=== PATIENT | female | born 1940 | race Caucasian/White ===

== ENCOUNTER 2017-04-28 11:59 | Emergency (ER) | payer OTHER ==
[2017-04-28 12:00] VITALS: BP 218/84; PULSE 94; RESP 16; TEMP 101.1; O2SAT 99
[2017-04-28] MEDS ORDERED: SODIUM CHLOR 0.9% 1000 ML INJ 1,000 ML IV SCH (12:21)
[2017-04-28 12:22] VITALS: O2SAT 97
--- NOTE | 2017-04-28 12:26 | PD ---
HPI Chief Complaint: GI Complaint Time Seen by Provider: 12:08 Travel History International Travel<30 days: Yes Contact w/Intl Traveler<30days: Yes Name of Country Traveled to: [place]; [facility]; [place] Traveled to known affect area: Yes History of Present Illness HPI 77 YO F with PMH of HTN, HLD, anxiety, presents to the ED for evaluation of less than 24-hour history of nausea and vomiting. Patient endorses one episode of loose, nonbloody stools today as well. She endorses chills, body aches and headache. She denies chest pain, palpitations, shortness of breath, abdominal pain, dysuria. She endorses history of clear rhinorrhea and sinus congestion 2 days, resolved now for 4 days. She states that she treated with OTC sinus medications. She states that she just returned from a cruise. She has not taken any of her daily medications today. She is visiting from [facility] Past Medical History Arthritis: Yes Depression: Yes Cardiovascular Problems: Yes (HTN) High Cholesterol: Yes Hypertension: Yes ?: Not Past Surgical History Appendectomy: Yes Cholecystectomy: Yes Social History Alcohol Use: Yes (OCC) Tobacco Use: No Substance Use: No Allergies-Medications (Allergen,Severity, Reaction): Coded Allergies: No Known Allergies (Unverified , 04/28/17) Reported Meds & Prescriptions Reported Meds & Active Scripts Active Zofran Odt (Ondansetron Odt) 4 Mg Tab 4 Mg SL Q6HR PRN Tamiflu (Oseltamivir Phosphate) 75 Mg Cap 75 Mg PO BID 5 Days Reported Levothyroxine (Levothyroxine Sodium) 137 Mcg Tab 137 Mcg PO DAILY Lipitor (Atorvastatin Calcium) 40 Mg Tab 40 Mg PO HS Amlodipine (Amlodipine Besylate) 5 Mg Tab 5 Mg PO DAILY Hyzaar (Losartan-Hydrochlorothiazide) 100-25 Mg Tab 1 Tab PO DAILY Spironolactone 25 Mg Tab 25 Mg PO DAILY Escitalopram (Escitalopram Oxalate) 10 Mg Tab 10 Mg PO DAILY Wellbutrin SR 12 HR (Bupropion HCl) 200 Mg Tab 200 Mg Q12HR Aspirin 81 Mg Chew 81 Mg CHEW DAILY Review of Systems Except as stated in HPI: all other systems reviewed are Neg Physical Exam Narrative GENERAL: Well-nourished, well-developed nontoxic appearing white female in no acute distress. SKIN: Warm and dry. HEAD: Normocephalic. Atraumatic. EYES: No scleral icterus. No injection or drainage. PERRLA. EOMI. ENT: Pearly gant tympanic membranes bilaterally. Nasal mucosa is moist. Oropharynx without erythema, edema or exudate. NECK: Supple, trachea midline. No JVD or lymphadenopathy. CARDIOVASCULAR: Regular rate and rhythm without murmurs, gallops, or rubs. RESPIRATORY: Breath sounds clear and equal bilaterally. No accessory muscle use. GASTROINTESTINAL: Abdomen soft, non-tender, nondistended. + Bowel sounds MUSCULOSKELETAL: No cyanosis, or edema. Full, active range of motion. Strength 5/5. Neurovascularly intact. BACK: Nontender without obvious deformity. No CVA tenderness. Data Data Last Documented VS Vital Signs Date Time Temp Pulse Resp B/P (MAP) Pulse Ox O2 Delivery O2 Flow Rate FiO2 04/28/17 14:42 04/28/17 13:07 78 15 98 Room Air 04/28/17 12:00 101.1 Orders Orders Complete Blood Count With Diff (04/28/17 12:21) Comprehensive Metabolic Panel (04/28/17 12:21) Urinalysis - C+S If Indicated (04/28/17 12:21) Iv Access Insert/Monitor (04/28/17 12:21) Ecg Monitoring (04/28/17 12:21) Oximetry (04/28/17 12:21) Ondansetron Inj (Zofran Inj) (04/28/17 12:30) Sodium Chlor 0.9% 1000 Ml Inj (Ns 1000 M (04/28/17 12:21) Influenzae A/B Antigen (04/28/17 12:21) Acetaminophen (Tylenol) (04/28/17 12:30) Amlodipine (Norvasc) (04/28/17 13:00) Losartan (Cozaar) (04/28/17 13:00) Chest, Single Ap (04/28/17 ) Ondansetron Odt (Zofran Odt) (04/28/17 14:30) Ed Discharge Order (04/28/17 14:31) Labs Laboratory Tests Test 04/28/17 12:15 White Blood Count 6.9 TH/MM3 Red Blood Count 4.41 MIL/MM3 Hemoglobin 12.6 GM/DL Hematocrit 37.0 % Mean Corpuscular Volume 83.9 FL Mean Corpuscular Hemoglobin 28.5 PG Mean Corpuscular Hemoglobin Concent 34.0 % Red Cell Distribution Width 14.7 % Platelet Count 404 TH/MM3 Mean Platelet Volume 6.9 FL Neutrophils (%) (Auto) 92.4 % Lymphocytes (%) (Auto) 3.0 % Monocytes (%) (Auto) 4.2 % Eosinophils (%) (Auto) 0.2 % Basophils (%) (Auto) 0.2 % Neutrophils # (Auto) 6.3 TH/MM3 Lymphocytes # (Auto) 0.2 TH/MM3 Monocytes # (Auto) 0.3 TH/MM3 Eosinophils # (Auto) 0.0 TH/MM3 Basophils # (Auto) 0.0 TH/MM3 CBC Comment DIFF FINAL Differential Comment Urine Color YELLOW Urine Turbidity CLEAR Urine pH 6.0 Urine Specific [place] 1.022 Urine Protein TRACE mg/dL Urine Glucose (UA) NEG mg/dL Urine Ketones TRACE mg/dL Urine Occult Blood TRACE Urine Nitrite NEG Urine Bilirubin NEG Urine Urobilinogen LESS THAN 2.0 MG/DL Urine Leukocyte Esterase TRACE Urine RBC 5 /hpf Urine WBC 1 /hpf Urine Squamous Epithelial Cells <1 /hpf Urine Bacteria RARE /hpf Urine Hyaline Casts 1 /lpf Urine Mucus FEW /lpf Microscopic Urinalysis Comment CULT NOT INDICATED Blood Urea Nitrogen 23 MG/DL Creatinine 0.81 MG/DL Random Glucose 127 MG/DL Total Protein 7.5 GM/DL Albumin 4.1 GM/DL Calcium Level 8.6 MG/DL Alkaline Phosphatase 124 U/L Aspartate Amino Transf (AST/SGOT) 23 U/L Alanine Aminotransferase (ALT/SGPT) 26 U/L Total Bilirubin 0.5 MG/DL Sodium Level 134 MEQ/L Potassium Level 4.0 MEQ/L Chloride Level 98 MEQ/L Carbon Dioxide Level 27.1 MEQ/L Anion Gap 9 MEQ/L Estimat Glomerular Filtration Rate 69 ML/MIN [facility] Medical Decision Making Medical Screen Exam Complete: Yes Emergency Medical Condition: Yes Differential Diagnosis influenza versus viral syndrome versus infectious diarrhea versus metabolic drainage versus other Narrative Course 77 YO F with PMH of HTN, HLD, anxiety, presents to the ED for evaluation of less than 24-hour history of nausea and vomiting. Patient endorses one episode of loose, nonbloody stools today as well. She endorses chills, body aches and headache. She endorses history of clear rhinorrhea and sinus congestion 2 days , resolved now for 4 days. She states that she just returned from a cruise. She has not taken any of her daily medications today. She is visiting from [place], [place]. is at bedside, asymptomatic. She is unsure if she received this years flu vaccine. Temp 101.1, pulse 94, BP 218/84 presentation. On exam is within anxious appearing white female in no acute distress. ENT exam is unremarkable. Chest CTAB, abdomen soft and nontender. IV was established. Patient was administered 1 L normal saline, 4 mg Zofran IV, 650 mg Tylenol by mouth. CBC: No leukocytosis or anemia. CMP: BUN 23, creatinine 0.81. UA: No culture indicated Flu swab: Negative On recheck patient reports improvement of her symptoms. No further episodes of vomiting in the ED. Patient returns to [place] today. Could be false negative flu swab. She is prescribed Tamiflu and provided a few doses of Zofran. She is instructed to follow-up with her primary care provider upon return home. She indicated understanding the instructions. She is stable and discharged home. Diagnosis Primary Impression: Viral syndrome Additional Impression: Nausea & vomiting Qualified Codes: R11.2 - Nausea with vomiting, unspecified Referrals: Primary Care Physician Patient Instructions: General Instructions, Viral Syndrome (ED) Additional Instructions: Rest, hydrate. Push fluids such as sports drinks, Pedialyte, popsicles, clear broth. Take Tamiflu as prescribed. Zofran every 6-8 hours as prescribed, as needed for continued nausea and vomiting. Alternating Motrin and Tylenol every 4-6 hours as needed for continued fever. Increase handwashing frequently to avoid the spread of the virus to other family members and the community. Disinfect commonly touched surfaces such as light switches, microwaves, remote controls. Replace toothbrush at the end of this illness. Follow-up with the primary care provider upon return home. Return to the ED for worsening symptoms or any urgent or emergent medical condition. Med/Other Pt SpecificInfo: Prescription(s) given Scripts Ondansetron Odt (Zofran Odt) 4 Mg Tab 4 MG SL Q6HR Y for Nausea/Vomiting, #5 TAB 0 Refills Prov: Sosa Jo MD 04/28/17 Oseltamivir (Tamiflu) 75 Mg Cap 75 MG PO BID for Mgmt Viral Infection for 5 Days, #10 CAP 0 Refills Prov: Sosa Jo MD 04/28/17 Disposition: 01 DISCHARGE HOME Condition: Stable Simona Layton Apr 28, 2017 12:26
[2017-04-28] MEDS ORDERED: ACETAMINOPHEN 325 MG TAB PO ONE (12:30)
[2017-04-28] MEDS ORDERED: ONDANSETRON HCL 4 MG/2 ML VIAL IVP ONE (12:30)
[2017-04-28] MEDS ORDERED: ESCI10TA PO (12:46)
[2017-04-28] MEDS ORDERED: HYZA100T6 PO (12:46)
[2017-04-28] MEDS ORDERED: WELL200T (12:46)
[2017-04-28] MEDS ORDERED: AMLO5TAB2 PO (12:46)
[2017-04-28] MEDS ORDERED: ASPI-516 CHEW (12:46)
[2017-04-28] MEDS ORDERED: LIPI40TA PO (12:46)
[2017-04-28] MEDS ORDERED: LEVO137T2 PO (12:46)
[2017-04-28] MEDS ORDERED: SPIR25TA PO (12:46)
[2017-04-28 12:51] LABS: AUTOMATED NEUTROPHIL # 6.3 TH/MM3 (1.8-7.7); BASOPHIL % 0.2 % (0.0-2.0); EOSINOPHIL % 0.2 % (0.0-4.0); HEMOGLOBIN 12.6 GM/DL (11.6-15.3); LYMPHOCYTE # 0.2 TH/MM3 (1.0-4.8); MEAN CELL VOLUME 83.9 FL (80.0-100.0); MEAN CORPUSCULAR HEMOGLOBIN 28.5 PG (27.0-34.0); MEAN PLATELET VOLUME 6.9 FL (7.0-11.0); MONO % 4.2 % (0.0-8.0); MONOCYTE # 0.3 TH/MM3 (0-0.9); NEUT % 92.4 % (16.0-70.0); PLATELET COUNT 404 TH/MM3 (150-450); RED BLOOD COUNT 4.41 MIL/MM3 (4.00-5.30); RED CELL DISTRIBUTION WIDTH 14.7 % (11.6-17.2); WHITE BLOOD COUNT 6.9 TH/MM3 (4.0-11.0)
[2017-04-28 12:59] LABS: BACTERIA, URINE RARE /hpf; BILIRUBIN, URINE NEG (NEG); BLOOD, URINE TRACE (NEG); GLUCOSE,URINE NEG (NEG); HYALINE CAST, URINE 1 /lpf (RARE); KETONE, URINE TRACE mg/dL (NEG); MUCUS URINE FEW /lpf (OCC); NITRITE,URINE NEG (NEG); SQUAMOUS EPITHELIAL CELL URINE <1 /hpf (0-5); URINE COLOR YELLOW (YELLW/STRAW); URINE LEUKOCYTE ESTERASE TRACE (NEG)
[2017-04-28] MEDS ORDERED: amLODIPine BESYLATE 5 MG TAB PO ONE (13:00)
[2017-04-28] MEDS ORDERED: LOSARTAN 25 MG TAB PO ONE (13:00)
[2017-04-28 13:04] LABS: ALBUMIN 4.1 GM/DL (3.4-5.0); AST (GOT) 23 U/L (15-37); BICARBONATE 27.1 MEQ/L (21.0-32.0); BLOOD UREA NITROGEN 23 MG/DL (7-18); CALCIUM 8.6 MG/DL (8.5-10.1); CHLORIDE 98 MEQ/L (98-107); CREATININE 0.81 MG/DL (0.50-1.00); GLOMERULAR FILTRATION RATE 69 ML/MIN (>89); GLUCOSE,RANDOM 127 MG/DL (74-106); SODIUM (NA) 134 MEQ/L (136-145)
[2017-04-28 13:06] LABS: ALT (GPT) 26 U/L (10-53)
[2017-04-28 13:07] VITALS: BP 170/72; PULSE 78; RESP 15; O2SAT 98
[2017-04-28 13:07] LABS: ALKALINE PHOSPHATASE 124 U/L (45-117); TOTAL BILIRUBIN ADULT 0.5 MG/DL (0.2-1.0); TOTAL PROTEIN 7.5 GM/DL (6.4-8.2)
--- NOTE | 2017-04-28 13:43 | PD ---
Physical Exam Narrative I, Dr. Jo, have reviewed the advance practice practitioner's documentation and am in agreement, met with the patient face to face, made the diagnosis, and the medical decision making was done by me. *My assessment and Findings: Patient is a 77 year old female who comes in complaining of nausea and vomiting. She says that she had some cold symptoms for about 2 days, but that resolved a few days ago and this started this morning. Exam shows lungs CTA. Abdomen is soft and nontender. Data Data Last Documented VS Vital Signs Date Time Temp Pulse Resp B/P (MAP) Pulse Ox O2 Delivery O2 Flow Rate FiO2 04/28/17 14:42 04/28/17 13:07 78 15 98 Room Air 04/28/17 12:00 101.1 Orders Orders Complete Blood Count With Diff (04/28/17 12:21) Comprehensive Metabolic Panel (04/28/17 12:21) Urinalysis - C+S If Indicated (04/28/17 12:21) Iv Access Insert/Monitor (04/28/17 12:21) Ecg Monitoring (04/28/17 12:21) Oximetry (04/28/17 12:21) Ondansetron Inj (Zofran Inj) (04/28/17 12:30) Sodium Chlor 0.9% 1000 Ml Inj (Ns 1000 M (04/28/17 12:21) Influenzae A/B Antigen (04/28/17 12:21) Acetaminophen (Tylenol) (04/28/17 12:30) Amlodipine (Norvasc) (04/28/17 13:00) Losartan (Cozaar) (04/28/17 13:00) Chest, Single Ap (04/28/17 ) Ondansetron Odt (Zofran Odt) (04/28/17 14:30) Ed Discharge Order (04/28/17 14:31) Labs Laboratory Tests Test 04/28/17 12:15 White Blood Count 6.9 TH/MM3 Red Blood Count 4.41 MIL/MM3 Hemoglobin 12.6 GM/DL Hematocrit 37.0 % Mean Corpuscular Volume 83.9 FL Mean Corpuscular Hemoglobin 28.5 PG Mean Corpuscular Hemoglobin Concent 34.0 % Red Cell Distribution Width 14.7 % Platelet Count 404 TH/MM3 Mean Platelet Volume 6.9 FL Neutrophils (%) (Auto) 92.4 % Lymphocytes (%) (Auto) 3.0 % Monocytes (%) (Auto) 4.2 % Eosinophils (%) (Auto) 0.2 % Basophils (%) (Auto) 0.2 % Neutrophils # (Auto) 6.3 TH/MM3 Lymphocytes # (Auto) 0.2 TH/MM3 Monocytes # (Auto) 0.3 TH/MM3 Eosinophils # (Auto) 0.0 TH/MM3 Basophils # (Auto) 0.0 TH/MM3 CBC Comment DIFF FINAL Differential Comment Urine Color YELLOW Urine Turbidity CLEAR Urine pH 6.0 Urine Specific [place] 1.022 Urine Protein TRACE mg/dL Urine Glucose (UA) NEG mg/dL Urine Ketones TRACE mg/dL Urine Occult Blood TRACE Urine Nitrite NEG Urine Bilirubin NEG Urine Urobilinogen LESS THAN 2.0 MG/DL Urine Leukocyte Esterase TRACE Urine RBC 5 /hpf Urine WBC 1 /hpf Urine Squamous Epithelial Cells <1 /hpf Urine Bacteria RARE /hpf Urine Hyaline Casts 1 /lpf Urine Mucus FEW /lpf Microscopic Urinalysis Comment CULT NOT INDICATED Blood Urea Nitrogen 23 MG/DL Creatinine 0.81 MG/DL Random Glucose 127 MG/DL Total Protein 7.5 GM/DL Albumin 4.1 GM/DL Calcium Level 8.6 MG/DL Alkaline Phosphatase 124 U/L Aspartate Amino Transf (AST/SGOT) 23 U/L Alanine Aminotransferase (ALT/SGPT) 26 U/L Total Bilirubin 0.5 MG/DL Sodium Level 134 MEQ/L Potassium Level 4.0 MEQ/L Chloride Level 98 MEQ/L Carbon Dioxide Level 27.1 MEQ/L Anion Gap 9 MEQ/L Estimat Glomerular Filtration Rate 69 ML/MIN [facility] Supervised Visit with [facility]: Yes Narrative Course Labs show no acute abnormalities. CXR shows no acute abnormalities. Given IVF and Zofran. She is able to drink without vomiting. Discharged with prescription for Zofran and Tamiflu. Advised to follow up with her doctor. Advised to return to the ED as needed for any worsening symptoms. Scripts Ondansetron Odt (Zofran Odt) 4 Mg Tab 4 MG SL Q6HR Y for Nausea/Vomiting, #5 TAB 0 Refills Prov: Sosa Jo MD 04/28/17 Oseltamivir (Tamiflu) 75 Mg Cap 75 MG PO BID for Mgmt Viral Infection for 5 Days, #10 CAP 0 Refills Prov: Sosa Jo MD 04/28/17 Sosa Jo MD Apr 28, 2017 13:43
[2017-04-28] MEDS ORDERED: ZOFR4TAB3 SL (13:53)
[2017-04-28] MEDS ORDERED: OSEL75 PO (13:53)
--- NOTE | 2017-04-28 14:20 | RADRPT ---
EXAM DATE/TIME: 04/28/2017 13:37 [place] COMPARISON: No previous studies available for comparison. INDICATIONS : Fever. MEDICAL HISTORY : Hypertension. SURGICAL HISTORY : None. ENCOUNTER: Initial ACUITY: 1 day PAIN SCORE: 0/10 LOCATION: Bilateral chest FINDINGS: A single view of the chest demonstrates the lungs to be symmetrically aerated without evidence of mas s, infiltrate or effusion. The cardiomediastinal contours are unremarkable. Osseous structures are intact. CONCLUSION: The lungs are clear. Shubham Díaz MD on April 28, 2017 at 14:18 Board Certified Radiologist. This report was verified electronically.
[2017-04-28] MEDS ORDERED: ONDANSETRON ODT 4 MG TAB PO ONE (14:30)
[2017-04-28] MEDS ORDERED: ONDANSETRON HCL 4 MG/2 ML VIAL IV PUSH ONE (14:30)
== END 2017-04-28 14:43 | disposition home or self-care (01) ==
LOC: NEPE 11:59
DX: B34.9 Viral infection, unspecified (principal); R11.2 Nausea with vomiting, unspecified; I10 Essential (primary) hypertension; E78.00 Pure hypercholesterolemia, unspecified; F32.9 Major depressive disorder, single episode, unspecified; Z79.82 Long term (current) use of aspirin; Z79.899 Other long term (current) drug therapy
CPT/HCPCS: 71045; 80053; 81001; 85025; 87804; 96361; 96374; 99284; J2405; J7030